=== PATIENT | female | born 1945 | race Caucasian/White ===

== ENCOUNTER → 2017-12-19 | Outpatient (CLI) | payer MEDICARE, OTHER | LOC: M.RAD 13:38 | DX: Z12.31 Encounter for screening mammogram for malignant neoplasm of breast (principal) ==

== ENCOUNTER → 2018-08-09 | Outpatient (CLI) | payer MEDICARE, OTHER | LOC: M.ULTRA 08-04 15:33 | DX: I67.82 Cerebral ischemia (principal); N13.30 Unspecified hydronephrosis; I10 Essential (primary) hypertension ==

== ENCOUNTER 2018-08-19 10:39 | Emergency (ER) | payer MEDICARE, OTHER ==
[~2018-08-19] VITALS: Ht 162.6 cm; Wt 90.7 kg
[2018-08-19 11:54] VITALS: BP 160/87
== END 2018-08-19 11:54 | disposition home or self-care (01) ==
LOC: M.ERS 10:39
DX: S61.411A Laceration without foreign body of right hand, initial encounter (principal); F32.9 Major depressive disorder, single episode, unspecified; E78.00 Pure hypercholesterolemia, unspecified; Z90.710 Acquired absence of both cervix and uterus; W26.8XXA Contact with other sharp object(s), not elsewhere classified, initial encounter; Y93.89 Activity, other specified; Y92.89 Other specified places as the place of occurrence of the external cause; Y99.8 Other external cause status

== ENCOUNTER → 2018-11-15 | Outpatient (CLI) | payer MEDICARE, OTHER | LOC: M.RAD 08:11 | DX: K59.00 Constipation, unspecified (principal) ==

== ENCOUNTER 2018-11-26 15:57 | Observation (INO) | payer MEDICARE, OTHER ==
[~2018-11-26] VITALS: Ht 162.6 cm; Wt 96.0 kg
[2018-11-26 16:02] VITALS: BP 180/90
[2018-11-26] MEDS ORDERED: AMLODIPINE BESY10 MG PO (16:10)
[2018-11-26] MEDS ORDERED: CRESTOR20 MG PO (16:11)
[2018-11-26 16:16] LABS: ABSOLUTE LYMPHOCYTES 0.9 thou/uL (0.8-5.3); ABSOLUTE MONOCYTES 0.4 thou/uL (0.0-1.2); ABSOLUTE NEUTROPHILS 4.8 thou/uL (1.6-8.1); BASOPHILS 0.5 %; EOSINOPHILS 0.5 %; HEMATOCRIT 43.3 % (37.0-47.0); HEMOGLOBIN 14.9 gm/dL (12.0-15.0); MCH 29.2 pg (26.0-34.0); MCHC 34.5 g/dL (28.0-37.0); MCV 84.7 fL (80.0-100.0); MONOCYTES 7.3 %; MPV 8.8 fl. (7.2-11.1); NUCLEATED RBCS 0 /100WBC; PLATELET COUNT* 180 thou/uL (150-400); POLYS 77.7 %; RBC 5.11 mil/uL (4.20-5.00); RDW-CV 14.2 % (10.5-14.5); WBC 6.2 thou/uL (4.0-11.0)
[2018-11-26 16:27] LABS: ANION GAP 10 mmol/L (7-16); BUN 14 mg/dL (7-18); CALCIUM 10.1 mg/dL (8.5-10.1); CHLORIDE 104 mmol/L (98-107); CO2 25 mmol/L (21-32); GLUCOSE 140 mg/dL (70-99); POTASSIUM 3.7 mmol/L (3.5-5.1); SODIUM 139 mmol/L (136-145)
[2018-11-26 16:29] LABS: URINE BILIRUBIN NEGATIVE (Negative); URINE BLOOD TRACE (Negative); URINE CLARITY CLEAR; URINE COLOR YELLOW; URINE GLUCOSE-RANDOM NEGATIVE (Negative); URINE KETONES NEGATIVE (Negative); URINE LEUKOCYTES-REFLEX NEGATIVE (Negative); URINE NITRITE-REFLEX NEGATIVE (Negative); URINE PROTEIN NEGATIVE (Negative); URINE SPECIFIC GRAVITY 1.015 (1.005-1.030); URINE UROBILINOGEN 0.2 E.U./dl (0.2-1.0)
[2018-11-26 16:36] LABS: ALBUMIN 4.1 g/dL (3.4-5.0); ALKALINE PHOSPHATASE 96 U/L (46-116); LIPASE 171 U/L (73-393); SGOT 20 U/L (15-37); SGPT 34 U/L (30-65); TOTAL BILIRUBIN 0.5 mg/dL (<0.1-1.0); TOTAL PROTEIN 7.8 g/dL (6.4-8.2); TROPONIN-I LEVEL <0.06 ng/mL (<0.06)
[2018-11-26 18:38] VITALS: BP 139/69
[2018-11-26 18:59] VITALS: BP 148/79
--- NOTE | 2018-11-26 19:04 | NUR ---
RECEIVIED REPORT FROM ROBERTO RN IN ER AT 1830 OF EXPECTED ADMISSION- DX: SYNCOPE- PT ARRIVED TO ROOM 231 VIA BED AT 1845, SBA TO BED- ROPE WALKER PLACED ORDERED, TRACING SR- IV NOTED TO LEFT FA INTACT AND SL- VS 98.5 20 148/79 76 97% ON RA- NO C/O PAIN/DISCOMFORT- AT SIDE- CALL LIGHT AND PERSONAL BELONGINGS WITH IN REACH- ALL NEEDS MET AT THIS TIME-WCTM
[2018-11-26 20:10] VITALS: BP 132/81
[2018-11-27] VITALS (7 sets, daily range): BP systolic 112–140; BP diastolic 58–76
--- NOTE | 2018-11-27 05:21 | NUR ---
ASSUMED CARE AT 1910H, ON ROOM AIR AND TOLERATED. NO EPISODE OF SYNCOPE.ASSIT PT TO REST ROOM.NO CHEST PAIN NOTED.KEPT MONITORING AND TOWARDS GOAL.
--- NOTE | 2018-11-27 11:18 | EKG ---
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
--- NOTE | 2018-11-27 11:54 | NUR ---
MET WITH PT TO DISCUSS HOME SITUATION/DC PLANNING. PT LIVES WITH SPOUSE. IS INDEPENDENT AND ACTIVE. USES NO EQUIPMENT AND DOESN'T ANTICIPATE ANY DC NEEDS. AWAITING TESTS TODAY WITH POSSIBLE DC HOME
--- NOTE | 2018-11-27 14:28 | 2DMMODE ---
[place] [address] 2 D/M-MODE ECHOCARDIOGRAM Name: LUCIUS CARDOSO Room: [address] [place]#: [id number] Admission: 11/26/18 Attend Phys: Gwendolyn Johnson, Discharge: Date of : 45 Date of Service: 11/27/18 1428 Report #: [id number] THIS REPORT FOR: //name// APPROVED REPORT Study performed: 11/27/2018 11:31:04 EXAM: Comprehensive 2D, Doppler, and color-flow Echocardiogram Patient Location: In-Patient Room #: [facility] Status: routine BSA: 1.93 HR: 61 bpm BP: 140/72 mmHg Rhythm: NSR Other Information Study Quality: Good Indications Syncope 2D Dimensions IVSd: 11.58 (7-11mm) LVOT Diam: 20.54 (18-24mm) LVDd: 42.04 mm PWd: 9.70 (7-11mm) Ascending Ao: 32.65 (22-36mm) LVDs: 24.06 (25-40mm) Aortic Root: 31.37 mm Volumes Left Atrial Volume (Systole) LA ESV Index: 13.90 mL/m2 Aortic Valve AoV Peak Daryn.: 1.69 m/s AO Peak Gr.: 11.38 mmHg LVOT Max P.48 mmHg AO Mean Gr.: 6.57 mmHg LVOT Mean P.74 mmHg LVOT Max V: 1.77 m/s AO V2 VTI: 38.12 cm LVOT Mean V: 1.08 m/s ANNAMARIA (VTI): 3.41 cm2 LVOT V1 VTI: 39.26 cm Mitral Valve E/A Ratio: 1.02 MV Decel. Time: 203.05 ms MV E Max Daryn.: 0.86 m/[place] [address] 2 D/M-MODE ECHOCARDIOGRAM Name: LUCIUS CARDOSO Room: [address] M.R.#: [id number] Admission: 11/26/18 Attend Phys: Gwendolyn Johnson, Discharge: Date of : 45 Date of Service: 11/27/18 1428 Report #: [id number] MV PHT: 58.88 ms MVA (PHT): 3.74 cm2 TDI E/Lateral E': 6.62 E/Medial E': 5.38 Medial E' Daryn.: 0.16 m/s Lateral E' Daryn.: 0.13 m/s Pulmonary Valve PV Peak Daryn.: 0.90 m/s PV Peak Gr.: 3.21 mmHg Tricuspid Valve RAP Estimate: 5.00 mmHg TR Peak Gr.: 22.37 mmHg RVSP: 27.00 mmHg PA Pressure: 27.00 mmHg Left Ventricle The left ventricle is normal size. There is normal LV segmental wall motion. There is normal left ventricular wall thickness. Left ventricular systolic function is normal. The left ventricular ejection fraction is within the normal range. LVEF is 55-60%. The left ventricular diastolic function is normal. Right Ventricle The right ventricle is normal size. The right ventricular systolic function is normal. Atria The left atrium size is normal. The right atrium size is normal. Aortic Valve Mild aortic valve sclerosis. No aortic regurgitation is present. There is no aortic valvular stenosis. Mitral Valve The mitral valve is normal in structure. Trace mitral regurgitation. No evidence of mitral valve stenosis. Tricuspid Valve The tricuspid valve is normal in structure. Mild tricuspid regurgitation. estimated pa pressure 35 mm Hg Pulmonic Valve Pulmonic valve is not well visualized. There is no pulmonic [place] [address] 2 D/M-MODE ECHOCARDIOGRAM Name: LUCIUS CARDOSO Room: [address]#: [id number] Admission: 11/26/18 Attend Phys: Gwendolyn Johnson, Discharge: Date of : 45 Date of Service: 11/27/18 1428 Report #: [id number] Great Vessels The aortic root is normal in size. IVC is normal in size and collapses >50% with inspiration. Pericardium There is no pericardial effusion. <Conclusion> LVEF is 55-60%. Mild aortic valve sclerosis. <ELECTRONICALLY SIGNED> By: Lefty Parks MD, [facility] 11/27/18 1428 142 1428 Lefty Parks MD, FACC /INF
--- NOTE | 2018-11-27 15:25 | NUR ---
ASSESSMENT COMPLETE. PT ALERT AND ORIENTED X4. PT DENIES ANY PAIN. CARDIOLOGY CONSULTED. PT CAN DC HOME AND WILL HAVE HEART MONITOR MAILED TO HER HOUSE. PT CAN DC IF ECHO, EEG, AND CAROTID US NEGATIVE- PENDING RESULTS AT THIS TIME. PT IS ON ROOM AIR, VSS. PT IS NSR ON TELE MONITOR. PT IS UP STANDBY ASSIST, DENIES ANY DIZZINESS AND SYNCOPE. SEE ASSESSMENT AND VITALS FOR OTHER DETAILS. CALL LIGHT WITHIN REACH. WILL CONTINUE PLAN OF CARE
--- NOTE | 2018-11-27 18:31 | NUR ---
ALL TESTS CAME BACK NORMAL. PT DC HOME. DC INSTRUCTIONS GIVEN, PT WILL FOLLOW UP WITH PCP AND CARDIOLOGY. HEART MONITOR WILL BE MAILED TO PT HOME. PT VERBALIZES UNDERSTANDING. IV DC'D WITHOUT COMPLICATIONS. ALL BELONGINGS SENT WITH PATIENT.
--- NOTE | 2018-11-29 14:08 | CON ---
[address] [address] CONSULTATION Name: LUCIUS CARDOSO Room: [address] Viji Austin#: [id number] Admission: 11/26/18 Attend Phys: Gwendolyn Johnson MD Discharge: 11/27/18 Date of : 45 Report #: [id number] THIS REPORT FOR: //name// CC: Lefty Johnson DATE OF SERVICE: 11/27/2018 CARDIOLOGY CONSULTATION HISTORY OF PRESENT ILLNESS: The patient is a 73-year-old white female, who was asked to be seen in the hospital today after she had a syncopal spell. The history was obtained from the patient. There are not a lot of old records available. The patient stays fairly active, going for walks. She does note about a year ago, she was reaching for an object and apparently fell to the ground. After that, she was having problems with balance and lightheadedness. She went to see an ENT doctor and felt to have an inner ear disorder. Her dizzy spells improved. She was doing well until yesterday. She had an episode of lightheadedness and confusion. She apparently woke up on the kitchen floor. Her brought her to the emergency room and she was admitted. There is no seizure activity. She has had no recent vomiting, diarrhea or bleeding. She does note about 3 months ago, her blood pressure was elevated. She was started on amlodipine. PAST MEDICAL HISTORY: She has had a hysterectomy. She has a history of hyperlipidemia. MEDICATIONS: Include amlodipine and Crestor. ALLERGIES: She has no known drug allergies. FAMILY HISTORY: Her father of heart attack. SOCIAL HISTORY: She is . Her is actually a patient of mine. She is a retired teacher, does a lot of sowing. No smoking or alcohol abuse. REVIEW OF SYSTEMS: She has had no history of stroke, asthma, peptic ulcer disease, liver disease, kidney disease. She has skin cancer removed in the past. She has a history of depression, saw a psychiatrist in the past. Previously, she was on Zoloft, which she no longer takes. PHYSICAL EXAMINATION: GENERAL: Revealed an elderly female lying in bed. She appeared in no acute distress. VITAL SIGNS: She had a blood pressure of 140/70, pulse 70[place] [address] CONSULTATION Name: LUCIUS CARDOSO [address]#: [id number] Admission: 11/26/18 Attend Phys: Gwendolyn Johnson MD Discharge: 11/27/18 Date of : 45 Report #: [id number] HEENT: She is anicteric. Conjunctivae pink. Mucous membranes are moist. NECK: Neck veins do not appear distended. No carotid bruits. Neck is supple. CHEST: Clear to auscultation. CARDIOVASCULAR: Regular rate and rhythm. ABDOMEN: Soft. EXTREMITIES: Had no edema. Dorsalis pedis pulse 3+ bilaterally. SKIN: Warm, dry. NEUROLOGIC: Nonfocal. LYMPH: No adenopathy. MUSCULOSKELETAL: Joint effusion. LABORATORY DATA: Her ECG done yesterday showed a sinus rhythm, small inferior Q-waves, but no ST or T-wave changes were noted. On the monitor, she has remained in sinus rhythm. Her workup, she had CT scan of the head performed yesterday without contrast that showed no acute abnormalities. She had lab work yesterday, sodium 139, creatinine 1.0, glucose is 140. Liver function studies were normal. White blood cell count 6.2, hemoglobin 14.9. Urinalysis is negative for protein, negative leukocytes. IMPRESSION AND RECOMMENDATIONS: 1. Syncopal spell. Reason unclear. I would consider discharging the patient with a 30-day event recorder to rule out any arrhythmia. 2. Hypertension. The patient has been on a calcium jae. 3. Hyperlipidemia. The patient is on a statin drug. 4. History of depression. The patient is no longer on Zoloft. <ELECTRONICALLY SIGNED> By: Lefty Parks MD, FACC 11/29/18 1408 0804 [id number] Parks MD, FACC /nt
--- NOTE | 2018-12-01 09:32 | EEG ---
[address] [address] EEG STUDY REPORT Name: LUCIUS CARDOSO Room: [address]Maria Isabel#: [id number] Admission: 11/26/18 Attend Phys: Gwendolyn Johnson MD Discharge: 11/27/18 Date of : 45 Report #: [id number] THIS REPORT FOR: //name// CC: Lefty Johnson DATE OF SERVICE: 11/27/2018 This patient is being evaluated for episode of syncope. EEG was done by placing the electrodes by standard 10-20 system of electrode placement. Both referential and sequential montages were used for recording. Background activity in this patient's EEG is about 9 Hz and 30 microvolts. The patient became drowsy that is associated with bilateral slowing and vertex sharp waves. Throughout the record, no active epileptiform activity was noticed. IMPRESSION: This patient's EEG does not demonstrate any clearcut seizure activity and was unremarkable. Thank you very much for this referral. <ELECTRONICALLY SIGNED> By: Ritchie Bernardo MD 12/01/18 0932 1724 1901Pthuy Bernardo MD /nt
== END 2018-11-27 18:30 | disposition home or self-care (01) ==
LOC: M.ERS 15:57 → M.2W 17:28 → M.TBA-ER 17:28 → M.2W 18:53
PROVIDERS: Emergency Medicine Emergency Medical Services; ADMIT Internal Medicine
DX: R55 Syncope and collapse (principal); I10 Essential (primary) hypertension; E78.5 Hyperlipidemia, unspecified; F32.9 Major depressive disorder, single episode, unspecified; Z79.899 Other long term (current) drug therapy

== ENCOUNTER → 2019-01-22 | Outpatient (CLI) | payer MEDICARE, OTHER ==
[~2019-01-22] MED LIST: AMLODIPINE BESY10 MG PO; CRESTOR20 MG PO
== END ==
LOC: M.RAD 11:21
DX: Z12.31 Encounter for screening mammogram for malignant neoplasm of breast (principal)

== ENCOUNTER → 2019-02-19 | Outpatient (CLI) | payer MEDICARE, OTHER ==
[2019-02-19] VITALS (7 sets, daily range): BP systolic 113–145; BP diastolic 59–90
[~2019-02-19] VITALS: Ht 162.6 cm; Wt 92.1 kg
--- NOTE | 2019-02-19 16:58 | NUR ---
PATIENT DID NOT PASS OUT FOR TILT TABLE BUT WAS PRETTY CLOSE. HEART RATE LOW WAS 38 AND HEART RATE HIGH WAS 120. PATIENT TOLERATED PROCEDURE WELL.
--- NOTE | 2019-02-23 13:56 | PROC ---
[address] [address] PROCEDURE REPORT Name: LUCIUS CARDOSO Room: [facility]#: [id number] Admission: 02/19/19 Attend Phys: Lefty Parks MD, F Discharge: Date of : 45 Report #: [id number] THIS REPORT FOR: //name// CC: Lefty Dumont DATE OF SERVICE: 02/19/2019 TITLE OF PROCEDURE: Head upright tilt-table testing using sublingual nitroglycerin. INDICATIONS: Head upright tilt-table testing was requested in this patient with a history of recurrent syncope. DESCRIPTION OF PROCEDURE: The patient was laid supine on the tilt-table test in the resting state. The initial pulse was 73, blood pressure 144/74. The patient denied complaints at that time. She was then placed in the 70-degree head upright position for 20 minutes. During this time, the patient had no complaints. Blood pressure remained stable at 130/80. Heart rate was 84. After 20 minutes, the patient was given nitroglycerin 0.4 mg sublingually. Five minutes later, the patient complained of feeling lightheaded. She initially had an increase in heart rate, but then became severely bradycardic with a heart rate of 38, consistent with sinus bradycardia. Blood pressure could not be obtained at this time. The patient did not have a true syncope, but was unresponsive. She was then placed back into the supine position. She then denied any complaints and blood pressure and heart rate returned to normal. 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 The patient had both a vasodepressor and a cardioinhibitory response to nitroglycerin. <ELECTRONICALLY SIGNED> By: Lefty Parks MD, FACC 02/23/19 1356 1707 [id number] Parks MD, FACC /nt
== END | disposition home or self-care (01) ==
LOC: M.CL 08:50
DX: R55 Syncope and collapse (principal); E78.5 Hyperlipidemia, unspecified; Z98.890 Other specified postprocedural states; Z79.899 Other long term (current) drug therapy; Z90.710 Acquired absence of both cervix and uterus; Z82.49 Family history of ischemic heart disease and other diseases of the circulatory system

== ENCOUNTER → 2019-05-08 | Outpatient (CLI) | payer MEDICARE, OTHER ==
[2019-05-08 14:38] LABS: CREATININE 0.8 mg/dL (0.6-1.3)
== END ==
LOC: M.CT 13:58
PROVIDERS: Internal Medicine
DX: N28.1 Cyst of kidney, acquired (principal); R16.1 Splenomegaly, not elsewhere classified; K52.89 Other specified noninfective gastroenteritis and colitis; K76.89 Other specified diseases of liver

== ENCOUNTER → 2019-05-15 | Outpatient (CLI) | payer MEDICARE, OTHER | LOC: M.CT 11:57 | DX: K57.30 Diverticulosis of large intestine without perforation or abscess without bleeding (principal); K58.9 Irritable bowel syndrome, unspecified ==

== ENCOUNTER 2019-12-07 15:28 | Emergency (ER) | payer MEDICARE, OTHER ==
[~2019-12-07] VITALS: Ht 165.1 cm; Wt 90.7 kg
[2019-12-07] MEDS ORDERED: NABUMETONE 750750 M1 PO (18:53)
[2019-12-07] MEDS ORDERED: NORCO 5-325 TA1 EAC2 PO (18:53)
[2019-12-07 19:28] VITALS: BP 140/70
== END 2019-12-07 19:29 | disposition home or self-care (01) ==
LOC: M.ERS 15:28
DX: M71.22 Synovial cyst of popliteal space [Baker], left knee (principal); M22.42 Chondromalacia patellae, left knee; I10 Essential (primary) hypertension; E78.00 Pure hypercholesterolemia, unspecified; K58.9 Irritable bowel syndrome, unspecified

== ENCOUNTER → 2020-02-07 | Outpatient (CLI) | payer MEDICARE, OTHER ==
[~2020-02-07] MED LIST changes: +NABUMETONE 750750 M1 PO; +NORCO 5-325 TA1 EAC2 PO
== END ==
LOC: M.RAD 10:06
PROVIDERS: ATTEND Registered Nurse Diabetes Educator
DX: Z12.31 Encounter for screening mammogram for malignant neoplasm of breast (principal)

== ENCOUNTER → 2020-03-25 | Outpatient (CLI) | payer MEDICARE, OTHER | LOC: M.MRI 07:03 | PROVIDERS: ATTEND Orthopaedic Surgery | DX: S83.242A Other tear of medial meniscus, current injury, left knee, initial encounter (principal); M94.262 Chondromalacia, left knee; M25.462 Effusion, left knee; X58.XXXA Exposure to other specified factors, initial encounter; Y93.9 Activity, unspecified; Y92.89 Other specified places as the place of occurrence of the external cause; Y99.8 Other external cause status ==

== ENCOUNTER → 2020-09-03 | Outpatient (CLI) | payer MEDICARE, OTHER | LOC: M.RAD 13:30 | PROVIDERS: ATTEND Internal Medicine | DX: M85.88 Other specified disorders of bone density and structure, other site (principal); Z78.0 Asymptomatic menopausal state; I10 Essential (primary) hypertension ==

== ENCOUNTER → 2021-01-26 | Outpatient (CLI) | payer MEDICARE, OTHER | LOC: M.RAD 10:15 | PROVIDERS: ATTEND Internal Medicine | DX: M17.12 Unilateral primary osteoarthritis, left knee (principal); M22.42 Chondromalacia patellae, left knee ==

== ENCOUNTER → 2021-02-24 | Outpatient (CLI) | payer MEDICARE, OTHER | LOC: M.RAD 11:41 | PROVIDERS: ATTEND Internal Medicine | DX: Z12.31 Encounter for screening mammogram for malignant neoplasm of breast (principal) ==